=== PATIENT | female | born 1990 | race Caucasian/White ===

== ENCOUNTER → 2020-12-17 | Outpatient (CLI) | payer BC, OTHER ==
[~2020-12-17] MED LIST: PHENERGAN 25 MG25 M1 PO; VANCOCIN HCL125 MG PO; ZOFRAN4 MG PO
== END ==
LOC: KOH-I 08:20
DX: B19.20 Unspecified viral hepatitis C without hepatic coma (principal); K76.0 Fatty (change of) liver, not elsewhere classified
CPT/HCPCS: 76705

== ENCOUNTER → 2021-03-05 | Outpatient (CLI) | payer BC, OTHER | LOC: KOH-I 13:53 | DX: R51.9 Headache, unspecified (principal); J32.2 Chronic ethmoidal sinusitis | CPT/HCPCS: 70486 ==

== ENCOUNTER → 2021-03-19 | Outpatient (CLI) | payer BC, OTHER | LOC: KOH-I 14:58 | DX: E04.9 Nontoxic goiter, unspecified (principal); E04.8 Other specified nontoxic goiter | CPT/HCPCS: 76536 ==

== ENCOUNTER 2021-03-24 11:51 | Emergency (ER) | payer BC, OTHER ==
[2021-03-24 12:34] LABS: HEMOGLOBIN 14.4 gm/dl (12.3-15.3); RED BLOOD COUNT 4.64 M/UL (4.00-5.10); WHITE BLOOD COUNT 10.7 K/UL (4.5-11.0)
[2021-03-24] MEDS ORDERED: PHENERGAN 25 MG25 M1 PO (12:56)
[2021-03-24] MEDS ORDERED: ZOFRAN4 MG PO (12:56)
[2021-03-24 13:18] LABS: BUN/CREATININE RATIO 18 (0-10)
[2021-03-24] MEDS ORDERED: VANCOCIN HCL125 MG PO (14:24)
== END 2021-03-24 14:36 | disposition home or self-care (01) ==
LOC: ER1 11:51
PROVIDERS: Physician Assistant
DX: R11.2 Nausea with vomiting, unspecified (principal); R19.7 Diarrhea, unspecified; F17.290 Nicotine dependence, other tobacco product, uncomplicated; Z86.19 Personal history of other infectious and parasitic diseases; Z90.49 Acquired absence of other specified parts of digestive tract
CPT/HCPCS: 80053; 81001; 83690; 85025; 87086; 96374; 96375; 99284; J1885; J2405; J2550

== ENCOUNTER 2021-05-16 13:40 | Emergency (ER) | payer BC, OTHER ==
[2021-05-16] MEDS ORDERED: ZOFRAN4 MG PO (15:56)
== END 2021-05-16 16:05 | disposition home or self-care (01) ==
LOC: ER1 13:40
DX: R11.2 Nausea with vomiting, unspecified (principal); Z90.49 Acquired absence of other specified parts of digestive tract; Z20.822 Contact with and (suspected) exposure to COVID-19
CPT/HCPCS: 99284; U0002

== ENCOUNTER 2021-06-06 09:24 | Emergency (ER) | payer BC, OTHER ==
[2021-06-06] MEDS ORDERED: CYCLOBENZAPRINE10 MG PO (13:20)
== END 2021-06-06 13:33 | disposition home or self-care (01) ==
LOC: ER1 09:24
DX: S39.012A Strain of muscle, fascia and tendon of lower back, initial encounter (principal); X50.0XXA Overexertion from strenuous movement or load, initial encounter; Z90.89 Acquired absence of other organs
CPT/HCPCS: 72131; 96372; 99283; J1885